=== PATIENT | female | born 2000 | race Caucasian/White ===

== ENCOUNTER 2019-11-22 08:38 | Emergency (ER) | payer BC, SELFPAY ==
--- NOTE | ~2019-11-22 | CT_ITS ---
EXAMINATION: CT abdomen pelvis w con DATE: 11/22/2019 10:00 INDICATION: Abdominal pain and vomiting TECHNIQUE: Computed tomography (CT) of the abdomen and pelvis was performed with 100 cc Omnipaque 350 intravenous contrast. Automated exposure control and iterative reconstruction technique were employe d. Exam dose: 346.15 mGy-cm total exam DLP. COMPARISON: None. FINDINGS: The lung bases are clear. Normal heart size. No pericardial or pleural effusion. The liver, gallbladder, bile ducts, spleen, pancreas, pancreatic duct, and adrenal glands and kidneys appear normal, other than approximately 2 possible small left renal cysts. No urinary tract calculus or hydroureteronephrosis. The urinary bladder is unremarkable. Retroverted uterus. Normal caliber of the abdominal aorta. No intraperitoneal or retroperitoneal or pelvic mass lesion or adenopathy or ascites. No bowel obstruction, pneumatosis or intraperitoneal free air. No apparent evidence of appendicitis o r other inflammatory changes or abscess. No intraperitoneal free IMPRESSION: No apparent significant abnormality. Reviewed, dictated and finalized at [facility]. Reviewed, dictated and finalized at [facility].
[2019-11-22 08:45] VITALS: BP 149/93; PULSE 128; RESP 18; TEMP 36.6; O2SAT 100
--- NOTE | 2019-11-22 08:52 | ED.ABDPAIN ---
HPI - Abdominal Pain General Chief Complaint: Abdominal Pain Stated Complaint: abdominal pain/vomiting Time Seen by Provider: 11/22/19 08:44 Source: RN notes reviewed History of Present Illness HPI narrative: Patient presents emergency department from home for abdominal pain. Patient states symptoms been ongoing for the past 3 months but worsened over the past week. The pain is located left upper quadrant does not radiate described as sharp and stabbing. Patient states initially the pain was worse with eating but now can occur anytime. She states associated nausea vomiting as well as diarrhea. Denies any fevers or chills chest pain shortness of breath or any other symptoms Related Data Allergies Allergy/AdvReac Type Severity Reaction Status Date / Time No Known Allergies Allergy Verified 11/22/19 08:48 Review of Systems Review of Systems: Narrative: Gen.: Denies fevers or chills ENT: Denies congestion Respiratory: Denies shortness of breath or cough CV: Denies chest pain or palpitations GI: See HPI denies burning, urgency, frequency or hematuria Musculoskeletal: Denies back pain or muscle pain Neuro: Denies numbness, tingling, weakness or focal weakness Skin: Denies rash Except as documented, all other systems reviewed and negative [facility] Past Medical History Medical History (Updated 11/22/19 @ 11:16 by Enrike Daniels DO) Patient denies significant medical history Social History Social History (Updated 11/22/19 @ 08:53 by Enrike Daniels DO) Smoking status: Never smoker Gender identity (if verbalized by the patient): Female Exam Narrative: Exam Narrative: APPEARANCE: No acute distress, nontoxic, resting in bed HEENT: Normocephalic, atraumatic, OMM RESPIRATORY: No respiratory distress, clear to auscultation bilaterally with no rhonchi wheezing or rales CARDIOVASCULAR: RRR s murmur ABDOMINAL: Soft, nondistended, tender to palpation in left upper quadrant, no tenderness right upper quadrant, right lower quadrant left lower quadrant, no rebound or guarding MUSCULOSKELETAl: Moves all extremities. No clubbing, cyanosis or edema. NEURO: Awake and alert. Following commands, speech normal, no focal deficits SKIN:: Warm, dry. Normal Color PSYCHIATRIC: Normal affect/mood Course Course Emergency Course: Patient states abdominal pain is resolved following GI cocktail Patient states that they are feeling much better at this time. States abdominal pain has resolved. Repeat abdominal exam shows the patient's abdomen to be soft and nontender. Discussed with patient results of workup and diagnosis. Discussed need for follow-up with primary care physician, reasons to return to the emergency department in proper use of medication. Patient understands and agrees to current treatment plan. Discussed with patient concern of possible peptic ulcer need follow-up with GI for possible EGD Vital Signs Vital signs: Vital Signs Temperature 97.9 F 11/22/19 08:45 Pulse Rate 128 H 11/22/19 08:45 Respiratory Rate 18 11/22/19 08:45 Blood Pressure 149/93 H 11/22/19 08:45 Pulse Oximetry 100 11/22/19 08:45 Temperature 97.9 F 11/22/19 08:45 Pulse Rate 95 11/22/19 11:21 Respiratory Rate 18 11/22/19 11:21 Blood Pressure 120/68 11/22/19 11:21 Pulse Oximetry 100 11/22/19 11:21 MDM - Abdominal Pain MDM Narrative Medical decision making narrative: Patient's abdomen is soft without significant pain or signs of surgical abdomen on serial exams. Lab and x-ray evaluations are reviewed and patient is felt to be a reasonable candidate for outpatient management. Patient was instructed as to limitations of x-ray and laboratory evaluation and encouraged to return to ED or primary physician for repeat exam in 12 hours if continued or worsening pain Lab Data Result diagrams: 11/22/19 09:01 11/22/19 09:01 Labs: Lab Results 11/22/19 11/22/19 11/22/19 Range/Units 09:01 09:01 09:01
[2019-11-22] MEDS: SODIUM CHLORIDE 0.9% IV 1,000 ML 999 ML IV CONT (09:08)
[2019-11-22 09:09] LABS: Basophils Percent Auto 0.4 % (0.2-1.2); Eosinophils Absolute Auto 0.1 K/mm3 (0-0.3); Eosinophils Percent Auto 0.7 % (0-4.4); Hematocrit 37.7 % (37.0-47.0); Hemoglobin 12.8 g/dL (12.0-15.0); Immature Granulocyte Absolute 0.02 K/mm3 (0.00-0.031); Immature Granulocyte Percent A 0.3 % (0-0.5); Lymphocytes Absolute Auto 2.33 K/mm3 (0.9-3.2); Lymphocytes Percent Auto 34.9 % (18.3-44.2); Mean Corpuscular Hemoglobin 31.7 pg (26-34); Mean Corpuscular Volume 93.3 fl (80-100); Mean Platelet Volume 9.6 fl (7.4-10.4); Monocytes Absolute Auto 0.7 K/mm3 (0.1-0.6); Monocytes Percent Auto 9.7 % (2.6-8.5); Neutrophils Absolute Auto 3.6 K/mm3 (1.3-6.7); Platelet Count Result 438 k/mm3 (150-375); Red Blood Count 4.04 M/mm3 (4.2-5.4); Red Cell Distribution Width 12.2 % (11.5-14.5); White Blood Count 6.7 K/mm3 (4.5-10.0)
[2019-11-22] MEDS: FAMOTIDINE 20 MG/2 ML VIAL IV PUSH (09:09)
[2019-11-22 09:14] LABS: Add Urine Microscopic? YES; Appearance Urine Clear (Clear); Bacteria Urine Trace /hpf; Bilirubin Urine Negative (Negative); Blood Urine Negative (Negative); Color Urine Yellow (Yellow); Glucose Urine UA Negative (Negative); Ketones Urine Negative (Negative); Leukocyte Esterase Ur Negative LEU/UL (Negative); Mucus Urine Rare /lpf; Nitrate Urine Negative (Negative); Protein Urine 1+ mg/dL (Negative); RBC Urine 0-2 /hpf (0-2); Specific Grav Ur 1.019 (1.001-1.035); Squamous Epithelial Cell Urine Occasional /hpf (Few); Urobilinogen Urine Negative mg/dL (<2.0); WBC Urine 0-3 /hpf
[2019-11-22 09:24] LABS: Alanine Aminotransferase 11 U/L (4-35); Albumin Level 4.8 g/dL (3.5-5.1); Alkaline Phosphatase 62 U/L (38-126); Aspartate Amino Transferase 22 U/L (14-36); Bilirubin,Total 0.2 mg/dL (0.2-1.3); Blood Urea Nitrogen 9 mg/dL (7-17); Calcium 9.4 mg/dL (8.4-10.2); Carbon Dioxide 26 mmol/L (22-30); Chloride 102 mmol/L (98-107); Estimated CRCL calculation 95 ml/min; Estimated Glomerular Filt Rate > 60; Glucose 89 mg/dL (65-105); Lipase 31 U/L (23-300); Potassium 3.8 mmol/L (3.4-5.0); Sodium 138 mmol/L (137-145)
[2019-11-22] MEDS: ONDANSETRON INJ 4 MG/2 ML VIAL IV PUSH (10:44)
[2019-11-22 11:21] VITALS: BP 120/68; PULSE 95; RESP 18; O2SAT 100
== END 2019-11-22 11:29 | disposition home or self-care (01) ==
PROVIDERS: Emergency Provider Emergency Medicine
DX: R10.12 Left upper quadrant pain (principal)
CPT/HCPCS: 36415; 74177; 80053; 81001; 81025; 83690; 85025; 96361; 96365; 96375; 99284; A9270; J0131; J2405; J7030; Q9967

== ENCOUNTER 2019-12-15 00:30 | Outpatient (CLI) | payer BC, SELFPAY ==
[2019-12-15 17:00] LABS: SARS-CoV-2 RNA PCR Negative
== END 2019-12-15 00:31 | disposition home or self-care (01) ==
LOC: ANHCOVIDDT 00:31
PROVIDERS: Visit Provider Internal Medicine Gastroenterology
DX: Z01.818 Encounter for other preprocedural examination (principal); Z11.59 Encounter for screening for other viral diseases
CPT/HCPCS: 87635; C9803; U0003

== ENCOUNTER 2019-12-17 01:12 | Day surgery (SDC) | payer BC, SELFPAY ==
[2019-12-12 15:34] VITALS: BMI 24.1
--- NOTE | 2019-12-17 08:23 | WPDANESEPPF ---
Anes - Initial Pre Proc Eval Procedure: Operation Date: 12/17/19 09:00 Proposed Procedures p Esophagogastroduodenoscopy & Colonoscopy - Aly Jaime MD Date/Time: 12/17/19 08:23 Surgeon: Aly Jaime MD Pre Op Diagnosis: abdominal pain Patient Data Age: 19 Gender: F Height: 5 ft 7 in Weight: 70 kg Allergies Allergy/AdvReac Type Severity Reaction Status Date / Time adhesive tape Allergy Intermediate Rash Verified 12/17/19 08:17 Home Medications Medication Instructions Recorded Confirmed Type ascorbic acid (vitamin C) [Vitamin 250 mg PO DAILY 12/12/19 12/17/19 History C] pa-kv-cwdq-FA-Ca carb-vit K 1 tablet PO DAILY 12/12/19 12/17/19 History [Women's Multivitamin] norethindrone-e.estradiol-iron 1 tablet PO DAILY 12/12/19 12/17/19 History [ ()] Patient hx anesthesia problems: none Family hx anesthesia problems: none PMFSH Past Medical History Medical History Abdominal pain Diarrhea Nausea and vomiting in adult Patient denies significant medical history Social History Social History Smoking status: Never smoker Gender identity (if verbalized by the patient): Female Anes - Eval Final PreProcedure Day of Procedure 12/17/19 08:23 Patient weight: normal Heart: regular rate and rhythm Lungs: clear to auscultation Airway: Mallampati scale class II Neurological: alert and oriented Last oral intake: >/= 8 hours ASA classification: I Emergent: no Anesthetic plan: proceed Anesthesia type and monitoring: general GIVS and standard monitoring Informed Consent: The patient's anesthetic plan and its attendant risks and benefits were discussed with the patient/family/POA. Questions were solicited and answers provided to the satisfaction of the patient/family/POA.
[2019-12-17] MEDS: LACTATED RINGERS 1,000 ML 150 ML IV CONT (08:28)
[2019-12-17 08:31] VITALS: BP 138/82; PULSE 95; RESP 18; TEMP 36.5; O2SAT 100
--- NOTE | 2019-12-17 08:57 | WPDHPUPDATE1 ---
History and Physical Update Update Date/Time: 12/17/19 08:57 History and Physical has been reviewed, including an updated exam of the patient. There are NO changes in the patient's condition. Risks, benefits, and alternatives have been discussed and questions answered. Patient agrees to proceed with procedure.
[2019-12-17 09:32] VITALS: BP 94/56; PULSE 81; RESP 20; O2SAT 100
[2019-12-17 09:42] VITALS: BP 111/75; PULSE 73; RESP 15; O2SAT 100
[2019-12-17 09:52] VITALS: BP 113/80; PULSE 69; RESP 16; O2SAT 100
== END 2019-12-17 10:12 | disposition home or self-care (01) ==
PROVIDERS: PCP Pediatrics; Visit Provider Internal Medicine Gastroenterology
PROC: 0DJ08ZZ Inspection of Upper Intestinal Tract, Via Natural or Artificial Opening Endoscopic (ICD-10-PCS; CPT 43235; principal; 2019-12-17 09:00)
DX: R10.84 Generalized abdominal pain (principal); R19.4 Change in bowel habit; K29.60 Other gastritis without bleeding
CPT/HCPCS: 45380; 43239; 88305; J2704; J7120

== ENCOUNTER 2019-12-21 23:45 | Emergency (ER) | payer BC, SELFPAY ==
--- NOTE | ~2019-12-21 | CT_ITS ---
EXAMINATION: CT abdomen pelvis w con DATE: 12/22/2019 03:36 INDICATION: Left-sided upper abdominal pain. TECHNIQUE: Computed tomography (CT) of the abdomen and pelvis was performed with 100 mL Omnipaque-350 intravenous contrast. Automated exposure control and iterative reconstruction technique were employe d. The dose-length product was 390.08 mGy-cm. COMPARISON: 11/22/2019 FINDINGS: Lung bases are clear. Heart size is normal. No pericardial or pleural effusion. Liver, gallbladder, s pleen, pancreas and bilateral adrenal glands are normal. Bilateral kidneys are normal and symmetric p arenchymal enhancement and no hydronephrosis. Excreted contrast is seen in the bilateral kidneys and along portions of the normal-appearing bilateral ureters. The right ureteral jet of contrast is seen distributed throughout the normal bladder. Uterus and bilateral adnexa are unremarkable. No abnormal bowel wall thickening or obstruction. Appendix is normal. No free intraperitoneal gas or fluid. No pa thologically enlarged abdominal or pelvic lymphadenopathy. Mild lower thoracic spondylosis. IMPRESSION: 1. No acute intra-abdominal/pelvic process. Reviewed, dictated and finalized at [facility].
[2019-12-21 23:48] VITALS: BP 140/90; PULSE 124; RESP 22; TEMP 36.9; O2SAT 98
[2019-12-22 00:13] LABS: Basophils Percent Auto 0.3 % (0.2-1.2); Eosinophils Absolute Auto 0.1 K/mm3 (0-0.3); Eosinophils Percent Auto 1.4 % (0-4.4); Hematocrit 37.4 % (37.0-47.0); Hemoglobin 12.8 g/dL (12.0-15.0); Immature Granulocyte Absolute 0.02 K/mm3 (0.00-0.031); Immature Granulocyte Percent A 0.3 % (0-0.5); Lymphocytes Absolute Auto 2.59 K/mm3 (0.9-3.2); Lymphocytes Percent Auto 37.5 % (18.3-44.2); Mean Corpuscular HGB Conc 34.2 g/dl (32-36); Mean Corpuscular Hemoglobin 31.7 pg (26-34); Mean Corpuscular Volume 92.6 fl (80-100); Mean Platelet Volume 10.3 fl (7.4-10.4); Monocytes Absolute Auto 0.6 K/mm3 (0.1-0.6); Neutrophils Absolute Auto 3.6 K/mm3 (1.3-6.7); Neutrophils Percent Auto 52.5 % (45.5-73.1); Platelet Count Result 384 k/mm3 (150-375); Red Blood Count 4.04 M/mm3 (4.2-5.4); Red Cell Distribution Width 11.9 % (11.5-14.5); White Blood Count 6.9 K/mm3 (4.5-10.0)
--- NOTE | 2019-12-22 00:24 | ED.ABDPAIN ---
HPI - Abdominal Pain General Chief Complaint: Abdominal Pain Stated Complaint: ABD PAIN Time Seen by Provider: 12/21/19 23:49 Source: patient Mode of arrival: ambulatory Limitations: no limitations History of Present Illness HPI narrative: This patient is a 19 year old female who presents for evaluation of abdominal pain. She has been having intermittent left upper abdominal pain for several weeks. She states tonight her pain radiated up to bilateral upper abdomen. She reports her pain is migratory and she has associated nausea and vomiting. She had an EGD and colonoscopy performed by DR. Gaurang Manzanares on Sunday for her symptoms. She has been taking tylenol and zofran without relief. MD elicited complaint: abdominal pain Related Data Home Medications Medication Instructions Recorded Confirmed norethindrone-e.estradiol-iron 1 tablet PO DAILY 12/12/19 12/21/19 [ (28)] Allergies Allergy/AdvReac Type Severity Reaction Status Date / Time adhesive tape Allergy Intermediate Rash Verified 12/21/19 23:52 Review of Systems Review of Systems: All systems reviewed & are unremarkable except as noted in HPI and below Constitutional: Constitutional: Denies chills and Denies fever(s) Gastrointestinal: Gastrointestinal: Reports abdominal pain, Denies constipation, Reports nausea and Reports vomiting PMFSH Social History Social History Smoking status: Never smoker Gender identity (if verbalized by the patient): Female Exam Narrative: Exam Narrative: GENERAL: well-nourished, and moderate distess due to pain. HEAD: Normocephalic, atraumatic EYES: PERRLA and EOMI, conjunctiva clear without discharge THROAT:Mucous membranes moist, Oropharynx normal without erythema, exudate, peritonsillar swelling or fluctuance NECK: Supple, without lymphadenopathy or mass RESPIRATORY: No respiratory distress, Airway patent, Respirations non-labored, Clear to auscultation without rales, rhonchi or wheeze HEART: Regular rate and rhythm. No murmur heard. Normal peripheral pulses. ABDOMEN: Soft, bilateral upper quadrant tenderness, nondistended, normal active bowel sounds. No masses. with guarding but no rebound, No organomegaly. EXTREMITIES: No edema, normal strength with full range of motion. SKIN: Warm, dry, normal color without rash NEURO: Alert and oriented x3. CN 2-12 grossly intact. No focal deficits. PSYCH: Normal mood and affect. Course Reevaluation(s) Reevaluation #1: Patient states this pain is different so will repeat CT. Date: 12/22/19 Time: 02:58 Vital Signs Vital signs: Vital Signs Temperature 98.5 F 12/21/19 23:48 Pulse Rate 124 H 12/21/19 23:48 Respiratory Rate 22 H 12/21/19 23:48 Blood Pressure 140/90 12/21/19 23:48 Pulse Oximetry 98 12/21/19 23:48 Temperature 98.5 F 12/21/19 23:48 Pulse Rate 88 12/22/19 04:07 Respiratory Rate 16 12/22/19 04:07 Blood Pressure 114/74 12/22/19 04:07 Pulse Oximetry 98 12/22/19 04:07 MDM - Abdominal Pain Lab Data Attestation: I reviewed the patient's lab results. Result diagrams: 12/22/19 00:06 12/22/19 00:06 Labs: Lab Results 12/22/19 12/22/19 12/22/19 Range/Units 00:06 00:06 00:17 WBC 6.9 (4.5-10.0) K/mm3 RBC 4.04 L (4.2-5.4) M/mm3 Hgb 12.8 (12.0-15.0) g/dL Hct 37.4 (37.0-47.0) % MCV 92.6 (80-100) fl MCH 31.7 (26-34) pg MCHC 34.2 (32-36) g/dl RDW 11.9 (11.5-14.5) % Plt Count 384 H (150-375) k/mm3 MPV 10.3 (7.4-10.4) fl Immature Gran % (Auto) 0.3 (0-0.5) % Neut % (Auto) 52.5 (45.5-73.1) % Lymph % (Auto) 37.5 (18.3-44.2) % [place] % (Auto) 8.0 (2.6-8.5) % Eos % (Auto) 1.4 (0-4.4) % Baso % (Auto) 0.3 (0.2-1.2) % Lymph # (Auto) 2.59 (0.9-3.2) K/mm3 [place] # (Auto) 0.6 (0.1-0.6) K/mm3 Eos # (Auto) 0.1 (0-0.3) K/mm3 Baso # (Aut
[2019-12-22 00:25] LABS: Alanine Aminotransferase 13 U/L (4-35); Albumin Level 4.7 g/dL (3.5-5.1); Alkaline Phosphatase 51 U/L (38-126); Aspartate Amino Transferase 27 U/L (14-36); Bilirubin,Total 0.2 mg/dL (0.2-1.3); Blood Urea Nitrogen 11 mg/dL (7-17); Carbon Dioxide 25 mmol/L (22-30); Chloride 105 mmol/L (98-107); Estimated CRCL calculation 124 ml/min; Estimated Glomerular Filt Rate > 60; Glucose 101 mg/dL (65-105); Lipase 66 U/L (23-300); Potassium 3.9 mmol/L (3.4-5.0); Sodium 139 mmol/L (137-145)
[2019-12-22 00:28] LABS: Add Urine Microscopic? YES; Appearance Urine Clear (Clear); Bacteria Urine Trace /hpf; Bilirubin Urine Negative (Negative); Blood Urine 1+ (Negative); Color Urine Yellow (Yellow); Glucose Urine UA Negative (Negative); Ketones Urine Negative (Negative); Leukocyte Esterase Ur Negative LEU/UL (Negative); Mucus Urine Rare /lpf; Nitrate Urine Negative (Negative); Protein Urine Negative (Negative); RBC Urine 0-2 /hpf (0-2); Specific Grav Ur 1.016 (1.001-1.035); Squamous Epithelial Cell Urine Rare /hpf (Few); Urobilinogen Urine Negative mg/dL (<2.0); WBC Urine 0-3 /hpf
[2019-12-22] MEDS: PANTOPRAZOLE SODIUM IV 40 MG VIAL IV PUSH (00:38)
[2019-12-22] MEDS: LACTATED RINGERS 1,000 ML 999 ML IV CONT (00:38)
[2019-12-22] MEDS: ONDANSETRON INJ 4 MG/2 ML VIAL IV PUSH ×2 (00:38→02:32)
[2019-12-22] MEDS: DICYCLOMINE HCL INJ 20 MG/2 ML VIAL IM (00:38)
[2019-12-22] MEDS: BELLADONNA ALK/PHENOB ELIX 10 ML, MAG HYDROX/ALUMINUM HYD/SIMETH 30 ML, LIDOCAINE HCL 2... PO (01:37)
[2019-12-22 01:58] VITALS: BP 115/76; PULSE 89; RESP 16; O2SAT 98
[2019-12-22] MEDS: MORPHINE SULFATE 4 MG/ML INJ IV PUSH (02:32)
[2019-12-22 02:59] VITALS: PULSE 84; RESP 16; O2SAT 98
[2019-12-22 04:07] VITALS: BP 114/74; PULSE 88; RESP 16; O2SAT 98
== END 2019-12-22 04:30 | disposition home or self-care (01) ==
PROVIDERS: Emergency Provider General Practice
DX: R10.12 Left upper quadrant pain (principal)
CPT/HCPCS: 36415; 74177; 80053; 81001; 81025; 83690; 85025; 96372; 96374; 96375; 96376; 99284; A9270; C9113; J0500; J2270; J2405; J7120; Q9967

== ENCOUNTER 2020-01-07 08:06 | Outpatient (CLI) | payer BC, SELFPAY ==
--- NOTE | ~2020-01-07 | XR_ITS ---
EXAMINATION: XR small bowel follow through DATE: 01/07/2020 10:45 INDICATION: Nausea and vomiting. Abdominal pain. TECHNIQUE: [employer] radiograph(s) of the abdomen was/were obtained. Oral contrast was administered, and sequential radiographs of the abdomen were obtained until oral contrast was noted to be in the proxi mal colon. Spot fluoroscopic images of the small bowel were obtained. Fluoroscopy exposure time was m inutes. COMPARISON: None. FINDINGS: Transit time from the stomach to proximal colon was between 60-90 minutes. There is normal caliber an d mucosal fold pattern throughout the small bowel. Terminal ileum is normal. No tethering or abnorm al mass effect observed upon the small bowel with real-time fluoroscopy. IMPRESSION: 1. Normal small bowel follow-through. Reviewed, dictated and finalized at location [facility].
== END 2020-01-07 08:07 | disposition home or self-care (01) ==
PROVIDERS: Visit Provider Internal Medicine Gastroenterology
DX: R10.9 Unspecified abdominal pain (principal); R11.2 Nausea with vomiting, unspecified
CPT/HCPCS: 74250

== ENCOUNTER 2020-01-14 09:03 | Outpatient (CLI) | payer BC, SELFPAY ==
--- NOTE | ~2020-01-14 | US_ITS ---
US abdomen complete EXAMINATION: US Abdomen Complete INDICATION: Abdominal pain with nausea and vomiting PROCEDURE: Realtime High Resolution abdomen ultrasound. COMPARISON: No prior studies for comparison FINDINGS: Gallbladder within normal limits. No gallstones, pericholecystic fluid, gallbladder wall t hickening or biliary dilatation. Common bile duct measures 4 mm. Liver echotexture within normal limits without focal mass. Pancreas within normal limits. Pancreati c tail is obscured by bowel gas. Spleen is unremarkeable. Renal echotexture is within normal limits bilaterally without hydronephrosis, contour deforming mass or renal stone. Right kidney measures 10.5 cm. Left kidney measures 11.1 cm. Visualized aspects of the aorta and IVC are within normal limits. Portal vein is patent. No sonograph ic Soliz's sign indicated by the technologist. IMPRESSION: 1: Normal abdominal ultrasound. Reviewed, dictated and finalized at [facility].
== END 2020-01-14 09:04 | disposition home or self-care (01) ==
PROVIDERS: Visit Provider Internal Medicine Gastroenterology
DX: R10.9 Unspecified abdominal pain (principal); R11.2 Nausea with vomiting, unspecified
CPT/HCPCS: 76700

== ENCOUNTER 2024-02-06 13:07 | Outpatient (CLI) | payer BC, SELFPAY ==
--- NOTE | ~2024-02-06 | XR_ITS ---
EXAMINATION: XR hand RT min 3V DATE: 02/06/2024 13:31 INDICATION: Right hand pain. TECHNIQUE: 3 views of right hand were obtained. COMPARISON: None. FINDINGS: Bone alignment is normal. There is a fracture of palmar base of third middle phalanx, likel y healed. There are calcifications palmar to the bases of the fourth and fifth middle phalanges. Ther e is an old healed fracture deformity of base of fifth middle phalanx. There is heterotopic ossificat ion ulnar to head of fourth metacarpal. Joint spaces are normal. IMPRESSION: 1. Calcifications palmar to the bases of the fourth and fifth middle phalanges, which may be acute av ulsion fractures or chronic findings. 2. Fracture deformity of palmar base of third middle phalanx, likely healed. 3. Heterotopic ossification ulnar to head of fourth metacarpal, which may be an acute avulsion fractu re or a chronic finding. Reviewed, dictated and finalized at location [facility]. IMPRESSION: 1. Calcifications palmar to the bases of the fourth and fifth middle phalanges, which may be acute avulsion fractures or chronic findings. 2. Fracture deformity of palmar base of third middle phalanx, likely healed. 3. Heterotopic ossification ulnar to head of fourth metacarpal, which may be an acute avulsion fracture or a chronic finding.
== END 2024-02-06 13:08 | disposition home or self-care (01) ==
PROVIDERS: Visit Provider Plastic Surgery
DX: M79.641 Pain in right hand (principal); M25.841 Other specified joint disorders, right hand
CPT/HCPCS: 73130